=== PATIENT | female | born 1960 | race Caucasian/White ===

== ENCOUNTER 2017-06-20 11:29 | Emergency (ER) | payer MEDICAID, OTHER ==
[~2017-06-20] VITALS: Ht 162.6 cm; Wt 84.0 kg
[~2017-06-20 11:29] MED LIST: GABA300C10 PO; HYDR-3144 PO; NATA300V2 IV; PREG150C PO
[2017-06-20 14:52] VITALS: BP 121/68
[2017-06-20] MEDS ORDERED: [UNRECOGNIZED DRUG - OTHER] PO (14:59)
[2017-06-20] MEDS ORDERED: hormone PO (14:59)
[2017-06-20] MEDS ORDERED: PREG300C PO (14:59)
[2017-06-20] MEDS ORDERED: DULO60CA7 PO (14:59)
== END 2017-06-20 15:28 | disposition home or self-care (01) ==
LOC: ED 15:20
DX: G35 Multiple sclerosis (principal)
CPT/HCPCS: 74020; 93005; 99284; J7512

== ENCOUNTER → 2018-02-08 | Outpatient (CLI) | payer MEDICAID ==
[~2018-02-08] MED LIST changes: +DULO60CA7 PO; +FLUO20CA19 PO; +GADOBUTROL 7.5 MMOL/7.5 ML PFS ONE; -HYDR-3144 PO; +HYDR-3245 PO; +PREG300C PO; +SIMV20TA3 PO; +[UNRECOGNIZED DRUG - OTHER] PO; +hormone PO
== END | disposition home or self-care (01) ==
LOC: RAD 11:09
PROVIDERS: ATTEND Registered Nurse
DX: R90.82 White matter disease, unspecified (principal); M50.323 Other cervical disc degeneration at C6-C7 level; M50.23 Other cervical disc displacement, cervicothoracic region
CPT/HCPCS: 70553; 72156; A9585